=== PATIENT | female | born 1985 | race Caucasian/White ===

== ENCOUNTER 2025-02-11 21:18 | Emergency (ER) | payer OTHER ==
[~2025-02-11] VITALS: Ht 160 cm; Wt 63.6 kg
[2025-02-11 23:35] VITALS: BP 113/81; PULSE 93; RESP 16; TEMP 98.4; O2SAT 99
[2025-02-11 23:52] LABS: COVID AG,FIA SOURCE NASAL SWAB
[2025-02-12 00:27] LABS: RAPID GROUP A STREP NEGATIVE (NEGATIVE)
[2025-02-12 00:34] LABS: INFLUENZA TYPE A NEGATIVE FOR TYPE A (NEGATIVE); INFLUENZA TYPE B NEGATIVE FOR TYPE B (NEGATIVE)
[2025-02-12 00:35] LABS: SARS-COV2 (COVID) ANTIGEN,FIA Negative (Negative)
[2025-02-12] MEDS ORDERED: AMOX250C4 PO (02:14)
[2025-02-12] MEDS: TraMADol HCL 50 MG TABLET PO ONE (02:17)
[2025-02-12] MEDS: AMOXICILLIN TRIHYDRATE 250 MG CAPSULE PO ONE (02:17)
== END 2025-02-12 02:23 | disposition home or self-care (01) ==
LOC: EMS 21:18
DX: H66.93 Otitis media, unspecified, bilateral (principal); J06.9 Acute upper respiratory infection, unspecified; B97.89 Other viral agents as the cause of diseases classified elsewhere; Z91.040 Latex allergy status; Z20.822 Contact with and (suspected) exposure to COVID-19
CPT/HCPCS: 87430; 87804; 99283